=== PATIENT | male | born 1975 | race Caucasian/White ===

== ENCOUNTER 2019-07-24 16:43 | Emergency (ER) | payer SELFPAY ==
[~2019-07-24] VITALS: Ht 180.3 cm; Wt 102.1 kg
--- OUTSIDE RECORDS SUMMARY | ~2019-07-24 | XMS | Clinical Summary ---
Demographics + + + | Address | [address] | | | [place] [address] | + + + | Home Phone | | + + + | Preferred Language | Unknown | + + + | Marital Status | Unknown | + + + | Samaritan Affiliation | 1013 | + + + | Race | Unknown | + + + | Ethnic Group | Unknown | + + + Author + + + | Author | [facility] | | | and [place] | + + + | Organization | [facility] | | | and [place] | + + + | Address | Unknown | + + + | Phone | Unavailable | + + + Support + + +---------+ + | Name | Relationship | Address | Phone | + + +---------+ + | Patricia Davies | ECON | Unknown | | + + +---------+ + Care Team Providers + +------+ + | Care Oil Driller Name | Role | Phone | + +------+ + | No, Physician | PCP | Unavailable | + +------+ + Allergies No Known Allergies Medications No known medications Active Problems Not on file Immunizations + + + + | Name | Administration Dates | Next Due | + + + + | TDAP, (ADOL/ADULT) | 04/07/2019 | | + + + + Social History + +-------+ +--------+------+ | Tobacco Use | Types | Packs/Day | Years | Date | | | | | Used | | + +-------+ +--------+------+ | Never Smoker | | | | | + +-------+ +--------+------+ + +------+---+---+ | Smokeless Tobacco: | Chew | | | | Current User | | | | + +------+---+---+ + + +---------+ + | Alcohol Use | Drinks/Week | oz/Week | Comments | + + +---------+ + | Yes | 28 Cans of beer | 28.0 | occasionally | + + +---------+ + + + + | Sex Assigned at | Date Recorded | | | | + + + | Not on file | | + + + + + + + | Job Start Date | Occupation | Industry | + + + + | Not on file | Not on file | Not on file | + + + + + + + + | Travel History | Travel Start | Travel End | + + + + + + | No recent travel history available. | + + Last Filed Vital Signs + + + + + | Vital Sign | Reading | Time Taken | Comments | + + + + + | Blood Pressure | 158/108 | 04/18/2019 2:15 PM | | | | | PDT | | + + + + + | Pulse | 99 | 04/18/2019 2:15 PM | | | | | PDT | | + + + + + | Temperature | 36.4 C (97.5 F) | 04/18/2019 2:15 PM | | | | | PDT | | + + + + + | Respiratory Rate | 18 | 04/18/2019 2:15 PM | | | | | PDT | | + + + + + | Oxygen Saturation | 99% | 04/18/2019 2:15 PM | RA | | | | PDT | | + + + + + | Inhaled Oxygen | - | - | | | Concentration | | | | + + + + + | Weight | 99.8 kg (220 lb) | 04/18/2019 2:15 PM | | | | | PDT | | + + + + + | Height | 180.3 cm (5' 11") | 04/18/2019 2:15 PM | | | | | PDT | | + + + + + | Body Mass Index | 30.68 | 04/18/2019 2:15 PM | | | | | PDT | | + + + + + Plan of Treatment + + + + + | Health Maintenance | Due Date | Last Done | Comments | + + + + + | Vaccine: Influenza | | | | | (#1) | 9 | | | + + + + + | Vaccine: | | 04/07/2019 | | | Dtap/Tdap/Td (2 - | 9 | | | | Td) | | | | + + + + + Results Not on filefrom Last 3 Months Insurance + +--------+ +--------+ +---------+--------+ | Payer | Benefi | Subscriber | Effect | Phone | Address | Type | | | t Plan | ID | janice | | | | | | / | | Dates | | | | | | Group | | | | | | + +--------+ +--------+ +---------+--------+ | [employer] | SAIF | [id number] | Effect | [phone] | | Indemn | | | WC | | janice | 5 | | ity | | | | | for | | | | | | | | all | | | | | | | | dates | | | | + +--------+ +--------+ +---------+--------+ + +--------+ +--------+ + + | Guarantor Name | Accoun | Relation to | Date | Phone | Billing Address | | | t Type | Patient | of | | | | | | | | | | + +--------+ +--------+ + + | Cecil Rivers | Worker | Self | [birth year] | | | | s Comp | | 1975 | [phone] | [place] [address] | | | | | | 0 (Home) | | + +--------+ +--------+ + + | Cecil Rivers | Worker | Self | [birth year] | | | | | s Comp | | 1975 | [phone] | [place] [address] | | | | | | 6 (Home) | | + +--------+ +--------+ + + | Cecil Rivers | Person | Self | [birth year] | | | | | al/Fam | | 1975 | [phone] | [place] [address] | | | maricarmen | | | 0 (Home) | | + +--------+ +--------+ + + Advance Directives + + + + + | Type | Date Recorded | Patient | Explanation | | | | Plaster Applicator | | + + + + + | Power of | | | | | Senior Database Administrator | | | | + + + + + | Advance | 02/26/2019 3:14 | | | | Directive | PM | | | + + + + +
--- OUTSIDE RECORDS SUMMARY | ~2019-07-24 | XMS | Encounter Summary ---
Demographics + + + | Address | [address] | | | [place] [address] | + + + | Home Phone | | + + + | Preferred Language | Unknown | + + + | Marital Status | Unknown | + + + | Protestant Affiliation | 1013 | + + + | Race | Unknown | + + + | Ethnic Group | Unknown | + + + Author + + + | Author | [facility] | | | and [place] | + + + | Organization | [facility] | | | and [...] Team Providers + +------+ + | Care Silver Steward Name | Role | Phone | + +------+ + | No, Physician | PCP | Unavailable | + +------+ + Reason for Visit + + + | Reason | Comments | + + + | Wrist Injury (Major) | | + + + Encounter Details +--------+ + + + + | Date | Type | Department | Care Team | Description | +--------+ + + + + | 02/26/ | Emergency | [facility] | Naveen Tobar | Injury by nail gun, | | 2019 | | [facility] | [address] | initial encounter | | | | CENTER [address] | [address] | (Primary Dx) | | | | [address] [place], [place] | [place] [address] | | | | | [address] | [phone] | | | | | [phone] | | | +--------+ + + + + Social History + [...] 28 Cans of beer | 28.0 | | + + +---------+ + + + [...] recent travel history available. | + + documented as of this encounter Last Filed Vital Signs + + + + + | Vital Sign | Reading | Time Taken | Comments | + + + + + | Blood Pressure | 159/108 | 02/26/2019 2:35 PM | | | | | PDT | | + + + + + | Pulse | 97 | 02/26/2019 2:35 PM | | | | | PDT | | + + + + + | Temperature | 36.2 C (97.2 F) | 02/26/2019 2:35 PM | | | | | PDT | | + + + + + | Respiratory Rate | 16 | 02/26/2019 2:35 PM | | | | | PDT | | + + + + + | Oxygen Saturation | 100% | 02/26/2019 2:35 PM | | | | | PDT | | + + + + + | Inhaled Oxygen | - | - | | | Concentration | | | | + + + + + | Weight | 99.8 kg (220 lb) | 02/26/2019 2:35 PM | | | | | PDT | | + + + + + | Height | 180.3 cm (5' 11") | 02/26/2019 2:35 PM | | | | | PDT | | + + + + + | Body Mass Index | 30.68 | 02/26/2019 2:35 PM | | | | | PDT | | + + + + + documented in this encounter Discharge Instructions Instructions Naveen Tobar MD - 02/26/2019Return for sign of infection i.e. fever or increasing swelling and redness or heat. Keep hand elevated as much as possible. documented in this encounter Medications at Time of Discharge + + + +---------+ + + | Medication | Sig | Dispensed | Refills | Start | End Date | | | | | | Date | | + + + +---------+ + + | | Take 1 tablet by | 10 | 0 | 02/27/20 | | | sulfamethoxazole-tri | mouth 2 times daily | tablet | | 19 | 9 | | methoprim (BACTRIM | for 5 days. | | | | | | DS) 800-160 mg per | | | | | | | tablet | | | | | | + + + +---------+ + + documented as of this encounter Plan of Treatment Not on filedocumented as of this encounter Procedures + +--------+ + + + | Procedure Name | Priori | Date/Time | Associated Diagnosis | Comments | | | ty | | | | + +--------+ + + + | XR WRIST RIGHT 2 VW | STAT | 02/26/2019 | | Results for this | | | | 2:52 PM | | procedure are in the | | | | PDT | | results section. | + +--------+ + + + documented in this encounter Results XR Wrist Right 2 Vw (02/26/2019 2:52 PM PDT) + + | Specimen | + + | | + + + + + | Impressions | Performed At | + + + | IMPRESSION: Soft tissue foreign body without evidence of osseous | [facility] | | involvement. Dictated by: Presley Chang | | + + + + + + | Narrative | Performed At | + + + | EXAMINATION: XR WRIST RIGHT 3 + VW HISTORY: WRIST INJURY | [facility] | | (MAJOR) COMPARISON STUDY: None FINDINGS: Films in multiple | | | projections show a nail within the ventral soft tissues of the distal | | | forearm. The nail passes to the ulnar aspect of the ulna. No | | | fracture is identified. Carpal bones are normally aligned. No | | | subluxation. No dislocation. Age appropriate bone mineral | | | density. | | + + + + + | Procedure Note | + + | Yifan, Rad Results In - 02/26/2019 3:00 PM PDT EXAMINATION:XR WRIST RIGHT 3 + | | VWHISTORY:WRIST INJURY (MAJOR)COMPARISON STUDY:NoneFINDINGS:Films in multiple | | projections show a nail within the ventral soft tissues of the distal forearm. The nail | | passes to the ulnar aspect of the ulna. No fracture is identified. Carpal bones are | | normally aligned. No subluxation. No dislocation. Age appropriate bone mineral | | density.IMPRESSION: IMPRESSION:Soft tissue foreign body without evidence of osseous | | involvement.Dictated by: Presley Herreraectronically Signed by: Presley Chang on | | 02/26/2019 2:56 PM | | | |FINDINGS: | |Films in multiple projections show a nail within the ventral soft tissues of the distal for earm. The nail passes to the ulnar aspect of the ulna. No fracture is identified. Carpal bones are normally aligned. No subluxation. No dislocation. Age | |appropriate bone mineral density. | | | |IMPRESSION: | |IMPRESSION: | |Soft tissue foreign body without evidence of osseous involvement. | | | |Dictated by: Presley Chang | | | | | + + + +---------+ + + | Performing | Address | City/State/Zipcode | Phone Number | | Organization | | | | + +---------+ + + | [facility] | | | | + +---------+ + + documented in this encounter Visit Diagnoses + + | Diagnosis | + + | Injury by nail gun, initial encounter - Primary | + + documented in this encounter Administered Medications + +--------+---------+------+------+------+ | Medication Order | MAR | Action | Dose | Rate | Site | | | Action | Date | | | | + +--------+---------+------+------+------+ + +---+ | fentaNYL (PF) injection 75 mcg | | | 75 mcg, Intravenous, EVERY 1 | | | HOUR PRN, Pain, Starting Mon | | | 02/26/19 at 1444, For 2 doses | | + +---+ | | | + +---+ documented in this encounter
--- OUTSIDE RECORDS SUMMARY | ~2019-07-24 | XMS | Clinical Summary ---
Demographics + + + | Address | [address] | | | [place] [address] | + + + | Home Phone | | + + + | Preferred Language | Unknown | + + + | Marital Status | Unknown | + + + | Zoroastrianism Affiliation | 1013 | + + + | Race | Unknown | + + + | Ethnic Group | Unknown | + + + Author + + + | Author | [facility] | | | and [place] | + + + | Organization | [facility] | | | and [...] Team Providers + +------+ + | Care Accessioner Name | Role | Phone | + [...] | | + +--------+ +--------+ +---------+--------+ | [employer] | SAIF | [id number] | Effect | [phone] | | Indemn [...] | s Comp | | 1975 | [phone] | [place] [address] | | | | | | 0 (Home) | | + +--------+ +--------+ + + | Cecil Rivers | Worker | Self | [birth year] | | | | | s Comp | | 1975 | [phone] | [place] [address] | | | | | | 6 (Home) | | + +--------+ +--------+ + + | Cecil Rivers | Person | Self | [birth year] | | | | | al/Fam | | 1975 | [phone] | [place] [address] | | | maricarmen | | | 0 (Home) | | + +--------+ +--------+ + + Advance Directives + + + + + | Type | Date Recorded | Patient | Explanation | | | | Program Administrator | | + + + + + | Power of | | | | | Tube Dispatcher | | | | + + + + + | Advance | 02/26/2019 3:14 | | | | Directive | PM | | | + + + + +
--- OUTSIDE RECORDS SUMMARY | ~2019-07-24 | XMS | Encounter Summary ---
Demographics + + + | Address | [address] | | | [place] [address] | + + + | Home Phone | | + + + | Preferred Language | Unknown | + + + | Marital Status | Unknown | + + + | Confucianism Affiliation | 1013 | + + + | Race | Unknown | + + + | Ethnic Group | Unknown | + + + Author + + + | Author | [facility] | | | and [place] | + + + | Organization | [facility] | | | [...] Team Providers + +------+ + | Care Grinding Room Supervisor Name | Role | Phone | + +------+ + | No, Physician | PCP | Unavailable | + +------+ + Reason for Visit + + + | Reason | Comments | + + + | Suture Removal | | + + + Encounter Details +--------+ + + + + | Date | Type | Department | Care Team | Description | +--------+ + + + + | 04/18/ | Emergency | [facility] | | | | 2019 | | [facility] | | | | | | CENTER [address] | | | | | | [address] [place] | | | | | | [address] | | | | | | [phone] | | | +--------+ + + + [...] + + + documented in this encounter Plan of Treatment Not on filedocumented as of this encounter Visit Diagnoses Not on filedocumented in this encounter
--- OUTSIDE RECORDS SUMMARY | ~2019-07-24 | XMS | Encounter Summary ---
Demographics + + + | Address | [address] | | | [place] [address] | + + + | Home Phone | | + + + | Preferred Language | Unknown | + + + | Marital Status | Unknown | + + + | Congregation Affiliation | 1013 | + + + | Race | Unknown | + + + | Ethnic Group | Unknown | + + + Author + + + | Author | [facility] | | | and [place] | + + + | Organization | [facility] | | | [...] Team Providers + +------+ + | Care Account Underwriter Name | Role | Phone | + +------+ + PCP | Unavailable | + +------+ + Encounter Details +--------+ + + + + | Date | Type | Department | Care Team | Description | +--------+ + + + + | 08/05/ | Hospital | [facility] | | | | 2004 | Encounter | [facility] | | | | | | CENTER [address] | | | | | | [place] | | | | | | [address] | | | | | | [phone] | | | +--------+ + + + + Social History + +-------+ +--------+------+ | Tobacco Use | Types | Packs/Day | Years | Date | | | | | Used | | + +-------+ +--------+------+ | Never Assessed | | | | | + +-------+ +--------+------+ + + + | Sex Assigned at [...] Visit Diagnoses Not on filedocumented in this encounter"
--- OUTSIDE RECORDS SUMMARY | ~2019-07-24 | XMS | Encounter Summary ---
Demographics + + + | Address | [address] | | | [place] [address] | + + + | Home Phone | | + + + | Preferred Language | Unknown | + + + | Marital Status | Unknown | + + + | Hoahaoism Affiliation | 1013 | + + + | Race | Unknown | + + + | Ethnic Group | Unknown | + + + Author + + + | Author | [facility] | | | and [place] | + + + | Organization | [facility] | | | [...] Team Providers + +------+ + | Care Manufacturing Finance Manager Name | Role | Phone | + [...] | [address] [place], [place] | [place] [address] | | | | | [address] | [phone] | | | | | [phone] | | | +--------+ + + + [...]
--- OUTSIDE RECORDS SUMMARY | ~2019-07-24 | XMS | Encounter Summary ---
Demographics + + + | Address | [address] | | | [place] [address] | + + + | Home Phone | | + + + | Preferred Language | Unknown | + + + | Marital Status | Unknown | + + + | Bahai Affiliation | 1013 | + + + | Race | Unknown | + + + | Ethnic Group | Unknown | + + + Author + + + | Author | [facility] | | | and [place] | + + + | Organization | [facility] | | | [...] Team Providers + +------+ + | Care Clerk Analyst Name | Role | Phone | + [...] [place] | | | | | | [address] | | | | | | [phone] | | | +--------+ + + + [...]
--- OUTSIDE RECORDS SUMMARY | ~2019-07-24 | XMS | Encounter Summary ---
Demographics + + + | Address | [address] | | | [place] [address] | + + + | Home Phone | | + + + | Preferred Language | Unknown | + + + | Marital Status | Unknown | + + + | Yazdanism Affiliation | 1013 | + + + | Race | Unknown | + + + | Ethnic Group | Unknown | + + + Author + + + | Author | [facility] | | | and [place] | + + + | Organization | [facility] | | | and [...] Team Providers + +------+ + | Care Fresh Foods Technician Name | Role | Phone | + +------+ + PCP | Unavailable | + +------+ + Encounter Details +--------+ + + + + | Date | Type | Department | Care Team | Description | +--------+ + + + + | 08/05/ | Hospital | [facility] | | | | 2004 | Encounter | [facility] EM[facility] | | | | | | CENTER [address] | | | | | | [place] | | | | | | [address] | | | | | | [phone] | | | +--------+ + + + [...]
--- OUTSIDE RECORDS SUMMARY | ~2019-07-24 | XMS | Encounter Summary ---
Demographics + + + | Address | [address] | | | [place] [address] | + + + | Home Phone | | + + + | Preferred Language | Unknown | + + + | Marital Status | Unknown | + + + | Methodist Affiliation | 1013 | + + + | Race | Unknown | + + + | Ethnic Group | Unknown | + + + Author + + + | Author | [facility] | | | and [place] | + + + | Organization | [facility] | | | [...] Team Providers + +------+ + | Care Electrophysiologist Name | Role | Phone | + +------+ + | No, Physician | PCP | Unavailable | + +------+ + Reason for Visit + + + | Reason | Comments | + + + | Multiple Trauma | | + + + Encounter Details +--------+ + + + + | Date | Type | Department | Care Team | Description | +--------+ + + + + | 04/07/ | Emergency | [facility] | Cecil Suero, | Contusion of face, | | 2019 | | HOSPITAL EM[facility]Y | CUSTOMER RESOURCE SPECIALIST [address] | initial encounter | | | | CENTER [address] | [place] | (Primary Dx); Facial | | | | [place] | [address] | laceration, initial | | | | [address] | | encounter; | | | | [phone] | | Laceration of left | | | | | | lower extremity, | | | | | | initial encounter | +--------+ + + + + Social [...] + + + | Blood Pressure | 133/99 | 04/07/2019 8:31 PM | | | | | PDT | | + + + + + | Pulse | 85 | 04/07/2019 9:08 PM | | | | | PDT | | + + + + + | Temperature | 36.9 C (98.4 F) | 04/07/2019 7:56 PM | | | | | PDT | | + + + + + | Respiratory Rate | 18 | 04/07/2019 9:08 PM | | | | | PDT | | + + + + + | Oxygen Saturation | 98% | 04/07/2019 8:33 PM | | | | | PDT | | + + + + + | Inhaled Oxygen | - | - | | | Concentration | | | | + + + + + | Weight | 99.8 kg (220 lb) | 04/07/2019 7:39 PM | | | | | PDT | | + + + + + | Height | 180.3 cm (5' 11") | 04/07/2019 7:39 PM | | | | | PDT | | + + + + + | Body Mass Index | 30.68 | 04/07/2019 7:39 PM | | | | | PDT | | + + + + + documented in this encounter Discharge Instructions Instructions Cecil Suero NP - 04/07/2019For eyebrow laceration: When you shower or bathe, let water run over the wound but do not rub. Pat the wound gently with a soft towel to dry. Avoid direct sunlight to the wound and do not use tanning beds or lamps with the glue film in place. Do not apply any cream, lotion or ointment to the skin near the wound. It could loosen the glue before the wound heals. Do not apply any tape, sticky dressing, alcohol or Chloraprep to the glue site for the firs t 7 to 10 days. These could loosen the glue. For leg laceration: -Keep the wound clean and dry for the next 48 hrs. After that you may shower, and wash the wound with soap and water. No soaking or swimming until sutures are removed. -Apply antibiotic ointment to the wound. -Recheck for suture removal in 7-10 days. -Recheck promptly for any signs of infection. These include: increased redness, increased pain, fever, foul drainage from wound, or pus oozing from the wound. -Take any medication that was prescribed today as directed. AttachmentsThe following attachments cannot be sent through Care Everywhere.Laceration, Ext remity: Stitches, Staple, or Tape (Irish)Laceration, Chin, Skin Glue Repair (Irish)docum ented in this encounter Plan of Treatment Not on filedocumented as of this encounter Procedures + +--------+ + + + | Procedure Name | Priori | Date/Time | Associated Diagnosis | Comments | | | ty | | | | + +--------+ + + + | XR TIBIA FIBULA LEFT | STAT | 04/07/2019 | | Results for this | | 2 VW | | 8:06 PM | | procedure are in the | | | | PDT | | results section. | + +--------+ + + + documented in this encounter Results XR Tibia Fibula Left 2 Vw (04/07/2019 8:06 PM PDT) + + | Specimen | + + | | + + + + + | Impressions | Performed At | + + + | IMPRESSION: No acute fracture. Soft tissue laceration. | [facility] | | Dictated by: Presley Chang | | + + + + + + | Narrative | Performed At | + + + | EXAMINATION: XR TIBIA FIBULA LEFT 2 VW HISTORY: MULTIPLE | [facility] | | TRAUMA COMPARISON STUDY: None FINDINGS: Films in multiple | | | projections show davis soft tissue laceration. No foreign body. No | | | acute fracture. No subluxation. No dislocation. Remote medial | | | malleolar and distal fibular diaphyseal orthopedic fixation. Age | | | appropriate bone mineral density. | | + + + + + | Procedure Note | + + | Yifan, Rad Results In - 04/07/2019 8:48 PM PDT EXAMINATION:XR TIBIA FIBULA LEFT 2 | | VWHISTORY:MULTIPLE TRAUMACOMPARISON STUDY:NoneFINDINGS:Films in multiple projections | | show davis soft tissue laceration. No foreign body. No acute fracture. No subluxation. | | No dislocation. Remote medial malleolar and distal fibular diaphyseal orthopedic | | fixation. Age appropriate bone mineral density.IMPRESSION: IMPRESSION:No acute | | fracture.Soft tissue laceration.Dictated by: Presley Herreraectronically Signed by: | | Presley Chang on 04/07/2019 8:45 PM | |None | | | |FINDINGS: | |Films in multiple projections show davis soft tissue laceration. No foreign body. No acute fracture. No subluxation. No dislocation. Remote medial malleolar and distal fibular clair physeal orthopedic fixation. Age appropriate bone mineral density. | | | |IMPRESSION: | |IMPRESSION: | |No acute fracture. | |Soft tissue laceration. | | | |Dictated by: Presley Chang | | | | | + + + +---------+ + + | Performing | Address | City/State/Zipcode | Phone Number | | Organization | | | | + +---------+ + + | [facility] | | | | + +---------+ + + documented in this encounter Visit Diagnoses + + | Diagnosis | + + | Contusion of face, initial encounter - Primary | + + | Facial laceration, initial encounter | + + | Laceration of left lower extremity, initial encounter | + + documented in this encounter Administered Medications + +--------+---------+------+------+------+ | Medication Order | MAR | Action | Dose | Rate | Site | | | Action | Date | | | | + +--------+---------+------+------+------+ + +---+ | kfnvsss-hekiuwwokt-nhyenxxgf | | | pertussis (ADACEL, Tdap) 5-2-15.5 | | | LF-MCG/0.5 vaccine injection | | | Starting 04/07/19 at 2104, For | | | 1 dose, BALAJI HAMMOND: blanche | | | override, | | + +---+ | | | + +---+ + +-------+ +---------+---+ + | [id number] | Given | 04/07/20 | 0.5 mLs | | Deltoid- | | pertussis (ADACEL, Tdap) vaccine | | 19 9:07 | | | Left | | injection 0.5 mL 0.5 mL, | | PM PDT | | | | | Intramuscular, ONE TIME VACCINE, | | | | | | | 04/07/19 at 2130, For 1 dose, | | | | | | | Keep in refrigerator. Give | | | | | | | patient education information., | | | | | | + +-------+ +---------+---+ + +---+---+ | | | +---+---+ documented in this encounter
--- OUTSIDE RECORDS SUMMARY | ~2019-07-24 | XMS | Encounter Summary ---
Demographics + + + | Address | [address] | | | [place] [address] | + + + | Home Phone | | + + + | Preferred Language | Unknown | + + + | Marital Status | Unknown | + + + | Anabaptism Affiliation | [id number] | + + + | Race | Unknown | + + + | Ethnic Group | Unknown | + + + Author + + + | Author | [facility] | | | and [place] | + + + | Organization | [facility] | | | [...] Team Providers + +------+ + | Care Satellite Tv Technician Name | Role | Phone | [...] | 2019 | | [facility] | BOTTLE WASHING MACHINE OPERATOR [address] | initial encounter | | | | CENTER [address] | [place] | (Primary Dx); Facial | | | | [place] | [id number] | laceration, initial | | | | [phone] | | encounter; | | | | [phone] | | Laceration of left | | [...] Everywhere.Laceration, Ext remity: Stitches, Staple, or Tape (Panamanian)Laceration, Chin, Skin Glue Repair ([place]ian)docum ented in this encounter Plan of Treatment [...] by: Presley Herreraectronically Signed by: | | rPesley Chang on 04/07/2019 8:45 PM | |None [...] | | + +--------+---------+------+------+------+ + +---+ | tjmzfml-xtsczwitiv-uuteabzwa | | | pertussis (ADACEL, Tdap) 5-2-15.5 | | | LF-MCG/0.5 vaccine injection | | | Starting 04/07/19 at 2104, For | | | 1 dose, BALAJI HAMMOND: blanche | | | override, | | + +---+ | | | + +---+ + +-------+ +---------+---+ + | uxbsyji-gipfedqxih-ghcknszes | Given | 04/07/20 | 0.5 mLs [...]
--- NOTE | 2019-07-24 18:04 | EKG ---
[facility] [address] [facility] [place], [place] [address] Signed Sinus tachycardia Otherwise normal ECG No previous ECGs available Confirmed by LANDY HA MD ([id number]) on 07/24/2019 6:04:01 PM Electronically Signed By: LANDY HA MD 07/24/19 1804 PATIENT NAME: QIANA SEAMAN Electrocardiogram DATE OF : 79 PHYSICIAN: LANDY AH MD REPORT #: [id number] REPORT IS CONFIDENTIAL AND NOT TO BE RELEASED WITHOUT AUTHORIZATION
== END 2019-07-24 19:52 | disposition home or self-care (01) ==
LOC: ED 16:43
DX: R00.2 Palpitations (principal)
CPT/HCPCS: 71046; 80053; 84484; 85025; 85379; 93005; 93010; 99285-25